=== PATIENT | male | born 1930 | race Caucasian/White ===

== ENCOUNTER 2016-10-27 20:46 | Emergency (ER) | payer OTHER, MEDICARE ==
[~2016-10-27] VITALS: Ht 165.1 cm; Wt 81.8 kg
[~2016-10-27 20:46] MED LIST: ENOX40P SQ
[2016-10-27 20:48] VITALS: BP 121/64; PULSE 74; RESP 16; TEMP 98.6; O2SAT 98
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
[2016-10-28] MEDS ORDERED: HYDROmorphone HCL PF 1 MG/ML VIAL SQ ONE (00:30)
[2016-10-28] MEDS ORDERED: KETOROLAC TROMETHAMINE 60 MG/2 ML (IM) VIAL IM ONE (00:30)
[2016-10-28] MEDS ORDERED: PERC5TAB12 PO (00:45)
[2016-10-28 01:24] VITALS: BP 108/74; PULSE 68; RESP 18; TEMP 98.4; O2SAT 95
== END 2016-10-28 01:44 | disposition home or self-care (01) ==
LOC: NEPE 20:46
DX: M54.5 Low back pain (principal); M25.512 Pain in left shoulder; E78.00 Pure hypercholesterolemia, unspecified; Z87.39 Personal history of other diseases of the musculoskeletal system and connective tissue; Z87.19 Personal history of other diseases of the digestive system; Z85.51 Personal history of malignant neoplasm of bladder; Z85.828 Personal history of other malignant neoplasm of skin; V49.88XA Car occupant (driver) (passenger) injured in other specified transport accidents, initial encounter; Y92.488 Other paved roadways as the place of occurrence of the external cause
CPT/HCPCS: 96372; 99283; J1170; J1885

== ENCOUNTER 2017-12-02 19:21 | Emergency (ER) | payer MEDICARE ==
[~2017-12-02] VITALS: Ht 172.7 cm; Wt 84.0 kg
[~2017-12-02 19:21] MED LIST changes: -ENOX40P SQ; +PERC5TAB12 PO
[2017-12-02 19:25] VITALS: BP 141/75; PULSE 71; RESP 18; TEMP 98.7; O2SAT 96
[2017-12-02] MEDS ORDERED: LIDOCAINE HCL 1% 20 ML VIAL INFIL ONE (19:30)
[2017-12-02] MEDS ORDERED: TETANUS/DIPHTHERIA TOXOID ADULT 0.5 ML VIAL IM ONE (19:30)
--- NOTE | 2017-12-02 19:39 | PD ---
HPI Chief Complaint: Fall Time Seen by Provider: 19:28 Travel History International Travel<30 days: No Contact w/Intl Traveler<30days: No Traveled to known affect area: No History of Present Illness HPI Patient while ambulating missed a step and fell forward hitting the front of his forehead and nose on the ground. Patient denies any LOC however it was not a witnessed event. Patient states that he has very bad knees and was unable to get into standing position until passerby's were able to help him stand up. Patient denies any alleviating or aggravating factors. His main complaint is that of laceration to his forehead and bridge of his nose. States no allergies to medications Past medical history significant for cataracts, hypercholesterolemia, ulcer disease, bladder surgery for cancer, multiple orthopedic surgeries such as bilateral shoulder right hip and neck pins. Also a history of hip replacement. PFSH Past Medical History Arthritis: Yes Blood Disorders: No Heart Rhythm Problems: No Cancer: Yes (EYE, BLADDER, SKIN) Cardiovascular Problems: No High Cholesterol: Yes Chemotherapy: No Chest Pain: No Congestive Heart Failure: No Diabetes: No Endocrine: No Gastrointestinal Disorders: Yes (BLADDER CA) GERD: No Glaucoma: No Genitourinary: No Hepatitis: No Hiatal Hernia: No Hypertension: No Immune Disorder: No Kidney Stones: No Musculoskeletal: Yes (MUSLCE WEAKNESS IN BOTH LEGS SOMETIMES,NECK,BACK, ARTHRITIS) Neurologic: No Psychiatric: No Reproductive: No Respiratory: No Myocardial Infarction: No Radiation Therapy: No Renal Failure: No Thyroid Disease: No Ulcer: Yes Past Surgical History Abdominal Surgery: No AICD: No Appendectomy: No Body Medical Devices: PINS NECK Cardiac Surgery: No Cholecystectomy: No Ear Surgery: No Endocrine Surgery: No Eye Surgery: Yes (CATARACTS, CA EYE REMOVED) Genitourinary Surgery: Yes (BLADDER SURGERY FOR CA) Gynecologic Surgery: No Joint Replacement: Yes (RIGHT HIP "BALL ") Neurologic Surgery: Yes (CERVICAL FUSION ANTERIOR AND POSTERIOR) Oral Surgery: No Pacemaker: No Thoracic Surgery: No Other Surgery: Yes (RIGHT HIP) Social History Alcohol Use: No Tobacco Use: No Substance Use: No Allergies-Medications (Allergen,Severity, Reaction): Coded Allergies: *MDRO Multi-Drug Resistant Organism (Verified Allergy, 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 2007 Reported Meds & Prescriptions Reported Meds & Active Scripts Active Percocet (Oxycodone-Acetaminophen) 5-325 mg Tab 1-2 Tab PO Q6H PRN Review of Systems General / Constitutional: No: Fever Eyes: No: Visual changes HENT: No: Headaches Cardiovascular: No: Chest Pain or Discomfort Respiratory: No: Shortness of Breath Gastrointestinal: No: Abdominal Pain Genitourinary: No: Dysuria Musculoskeletal: No: Pain Skin: Positive Other (Lacerations to forehead and bridge of nose) Neurologic: No: Weakness Psychiatric: No: Depression Endocrine: No: Polydipsia Hematologic/Lymphatic: No: Easy Bruising Physical Exam Narrative GENERAL: SKIN: Warm and dry. see diagram HEAD: Atraumatic. Normocephalic. EYES: Pupils equal and round. No scleral icterus. No injection or drainage. ENT: No nasal bleeding or discharge. Mucous membranes pink and moist. NECK: Trachea midline. No JVD. CARDIOVASCULAR: Regular rate and rhythm. RESPIRATORY: No accessory muscle use. Clear to auscultation. Breath sounds equal bilaterally. GASTROINTESTINAL: Abdomen soft, non-tender, nondistended. MUSCULOSKELETAL: Extremities without clubbing, cyanosis, or edema. No obvious deformities. NEUROLOGICAL: Awake and alert. No obvious cranial nerve deficits. Motor grossly within normal limits. Five out of 5 muscle strength in the arms and legs. Normal speech. PSYCHIATRIC: Appropriate mood and affect; insight and judgment normal. Head 1 - Laceration (3 cm long, no crepitus, no active bleeding, not involving deeper structures) 2 - Laceration (upside down y shaped laceration, 1.5cm in total length, no crepitus, no septal hematoma noted) Data Data Last Documented VS Vital Signs Date Time Temp Pulse Resp B/P (MAP) Pulse Ox O2 Delivery O2 Flow Rate FiO2 12/02/17 19:25 98.7 71 18 141/75 (97) [address] Brain W/O Iv Contrast(Rout) (12/02/17 19:28) Ct Cerv Spine W/O Contrast (12/02/17 19:28) Ct Facial Bones W/O Iv Cont (12/02/17 19:28) Blood Glucose (12/02/17 19:28) Tetanus/Diphtheria Tox Adult (Tetanus/Di (12/02/17 19:30) Lidocaine 1% Inj (Xylocaine 1% Inj) (12/02/17 19:30) MDM Medical Decision Making Medical Screen Exam Complete: Yes Emergency Medical Condition: Yes Medical Record Reviewed: Yes Differential Diagnosis ich v skull fx v facial fx v neck fx Narrative Course C-spine CAT scan read by radiologist as no fracture or subluxation of the cervical spine. A noted laminectomy and fusion without complication. Head CT read by radiologist as no bleed or other acute intracranial abnormality , left frontal scalp contusion is noted CT facial bones is read by radiologist as minimally displaced fracturing of the nose. Procedures Procedure Narrative LACERATION LOCATION: Bridge of the nose LENGTH: 2 cm in the shape of an upside down Y NUMBER OF STITCHES/LUIS: 6 sutures REPAIR: The area of the laceration was prepped with Betadine and sterilely draped. The laceration was infiltrated with [-]. The wound was copiously irrigated and explored without evidence of foreign body, tendon injury or neurovascular injury. The wound was closed using [4-0 Prolene-]. This was a single layer repair. A sterile dressing was applied. The patient was advised to keep the dressing clean and dry. Patient tolerated the procedure well. LACERATION LOCATION: [left eyebrow-] LENGTH: 4 cm NUMBER OF STITCHES/LUIS: [10 continuous sutures] REPAIR: The area of the laceration was prepped with Betadine and sterilely draped. The laceration was infiltrated with [4 mL of 1% lidocaine-]. The wound was copiously irrigated and explored without evidence of foreign body, tendon injury or neurovascular injury. The wound was closed using [4-0 Prolene- ]. This was a [single-] layer repair. A sterile dressing was applied. The patient was advised to keep the dressing clean and dry. Patient tolerated the procedure well. Diagnosis Primary Impression: Minimally displaced nasal fracture Additional Impression: Facial laceration status post suture repair Patient Instructions: Facial Laceration (ED), General Instructions, Nasal Fracture (ED) Additional Instructions: Suture removal in 7 days Scripts Tramadol (Ultram) 50 Mg Tab 50 MG PO Q8H Y for PAIN, #9 TAB 0 Refills Prov: Jt Agarwal MD 12/02/17 Disposition: 01 DISCHARGE HOME Condition: Stable Jt Agarwal MD Dec 02, 2017 19:39
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
[2017-12-02] MEDS ORDERED: TRAM50 PO (20:49)
== END 2017-12-02 21:13 | disposition home or self-care (01) ==
LOC: PHED 19:21
DX: S02.2XXA Fracture of nasal bones, initial encounter for closed fracture (principal); S01.112A Laceration without foreign body of left eyelid and periocular area, initial encounter; W10.9XXA Fall (on) (from) unspecified stairs and steps, initial encounter; Y93.01 Activity, walking, marching and hiking; Z23 Encounter for immunization
CPT/HCPCS: 12014; 70450; 70486; 72125; 90471; 90714